=== PATIENT | female | born 1975 | race African-American/Black ===

== ENCOUNTER 2017-03-31 12:37 | Emergency (ER) | payer OTHER ==
[~2017-03-31] VITALS: Ht 170.2 cm; Wt 106.9 kg
[~2017-03-31 12:37] MED LIST: CLEOCIN300 MG PO; MOTRIN800 MG PO; VICODIN,LORT1 TABLET PO
[2017-03-31 14:21] LABS: HEMATOCRIT 35.8 % (36.0-46.0); MCH 26.9 PG (29.0-34.0); MCHC 31.6 G/DL (30.0-36.0); MCV 85.2 FL (83-99); MEAN PLAT.VOLUME 9.9 uM^3 (9.5-12.4); PLATELET COUNT 302 K/uL (156-360); RBC DIS.WIDTH-CV 14.6 % (11.8-14.6); RBC DIS.WIDTH-SD 45.7 % (39-53)
[2017-03-31 14:26] LABS: ADD MIUA? YES; BILIRUBIN NEGATIVE; BLOOD MODERATE; COLOR STRAW ((YELLOW)); GLUCOSE (STRIP) NEGATIVE; KETONES NEGATIVE; LEUKOCYTES NEGATIVE; NITRITE NEGATIVE; PROTEIN (STRIP) NEGATIVE; SPECIFIC GRAVITY 1.005 (1.000-1.030); UROBILINOGEN 0.2 MG/DL (0.2-1.0)
[2017-03-31 14:31] LABS: BACTERIA NONE SEEN /HPF; EPITHELIAL CELLS RARE /HPF; MUCUS NONE SEEN /LPF; RED BLOOD CELLS 0-5 /HPF (0-5); UCUL ADDED? NO; WHITE BLOOD CELLS 0-5 /HPF (0-5)
[2017-03-31 15:10] LABS: ALKALINE PHOSPHATASE 74 IU/L (3-129); ANION GAP 9 MEQ/L (2-14); CHLORIDE 108 MEQ/L (99-109); GFR ESTIMATE (CALCULATED) > 59 mL/min/; GLUCOSE 93 mg/dL (70-99); POTASSIUM 3.9 MEQ/L (3.7-5.4); SAMPLE HEMOLYSIS CHECK 0; SAMPLE ICTERIC CHECK 0; SAMPLE LIPEMIA CHECK 0; SODIUM 140 MEQ/L (136-147); TOTAL BILIRUBIN 0.2 MG/DL (0.0-1.0); UREA NITROGEN (BUN) 10 mg/dL (9-23)
[2017-03-31 15:13] LABS: QUANTITATIVE HCG < 4.0 MIU/ML
[2017-03-31] MEDS ORDERED: ULTRAM50 MG PO (16:42)
[2017-03-31] MEDS ORDERED: MOTRIN800 MG PO (16:42)
[2017-03-31] MEDS ORDERED: ZOFRAN ODT4 MG PO (16:42)
[2017-03-31] MEDS ORDERED: BENTYL20 MG PO (16:42)
[2017-03-31 17:20] VITALS: BP 133/84
== END 2017-03-31 17:21 | disposition home or self-care (01) ==
LOC: RME 12:37 → EME 12:37 → RME 17:21
PROVIDERS: Nurse Practitioner Family
DX: D25.9 Leiomyoma of uterus, unspecified (principal); N89.8 Other specified noninflammatory disorders of vagina; F17.200 Nicotine dependence, unspecified, uncomplicated
CPT/HCPCS: 76856; 80053; 81003; 84702; 85027; 99281; 99284

== ENCOUNTER 2017-07-01 06:56 | Day surgery (SDC) | payer OTHER ==
[~2017-07-01] VITALS: Ht 171.4 cm; Wt 108.0 kg
[~2017-07-01 06:56] MED LIST changes: +ASCORBIC ACID500 M3 PO; +B COMPLEX #11 EACH PO; +BENTYL20 MG PO; +CALCIUM 500 MG1 EACH PO; +FOLIC ACID0.8 MG PO; +IRON325 M1 PO; +MAGNESIUM400 M1 PO; +ULTRAM50 MG PO; +VITAMIN D31000 UNI2 PO; +VITAMIN E400 UNIT PO; +ZOFRAN ODT4 MG PO
[2017-07-01 08:37] VITALS: BP 146/70
[2017-07-01 10:35] VITALS: BP 110/71
[2017-07-01 11:22] VITALS: BP 127/76
== END 2017-07-01 11:23 | disposition home or self-care (01) ==
LOC: SDC 06:56
PROC: 0U5B8ZZ Destruction of Endometrium, Via Natural or Artificial Opening Endoscopic (ICD-10-PCS; principal; 2017-07-01)
DX: N92.0 Excessive and frequent menstruation with regular cycle (principal); Z80.3 Family history of malignant neoplasm of breast; Z80.0 Family history of malignant neoplasm of digestive organs; F17.200 Nicotine dependence, unspecified, uncomplicated
CPT/HCPCS: 88305; J0131; J1100; J1170; J1885; J2250; J2405; J3010

== ENCOUNTER 2018-05-27 14:54 | Emergency (ER) | payer OTHER ==
[~2018-05-27] VITALS: Ht 170.2 cm; Wt 104.5 kg
[2018-05-27] MEDS ORDERED: FLEXERIL10 MG PO (16:33)
[2018-05-27 17:10] VITALS: BP 120/83
== END 2018-05-27 16:36 | disposition home or self-care (01) ==
LOC: EME 14:54
DX: R00.1 Bradycardia, unspecified (principal); M54.2 Cervicalgia; M25.512 Pain in left shoulder; V54.5XXA Driver of pick-up truck or van injured in collision with heavy transport vehicle or bus in traffic accident, initial encounter; Y92.410 Unspecified street and highway as the place of occurrence of the external cause; F17.200 Nicotine dependence, unspecified, uncomplicated
CPT/HCPCS: 71046; 72125; 73030; 93005; 99281; 99285